=== PATIENT | female | born 1970 | race Caucasian/White ===

== ENCOUNTER 2020-01-06 09:06 | Inpatient (IN) | payer BC ==
[~2020-01-06] VITALS: Ht 160 cm; Wt 85.2 kg
[2020-01-06] MEDS ORDERED: MIRE1IUD IU (09:14)
[2020-01-06] MEDS ORDERED: KETOROLAC 30 MG/ML 1ML VIAL IV ONE (09:45)
[2020-01-06 10:03] LABS: HEMATOCRIT 40.6 % (36.0-47.0); HEMOGLOBIN 13.3 g/dl (12.0-15.5); MEAN CORPUSCULAR HEMOGLOBIN 30.4 pg (27.0-33.0); MEAN CORPUSCULAR HGB CONC 32.8 g/dl (32.0-36.5); MEAN CORPUSCULAR VOLUME 92.9 fl (80.0-96.0); PLATELET COUNT, AUTOMATED 268 10^3/uL (150-450); RED BLOOD COUNT 4.37 10^6/uL (4.00-5.40); WHITE BLOOD COUNT 14.3 10^3/uL (4.0-10.0)
[2020-01-06 10:42] LABS: ALBUMIN 3.4 GM/DL (3.2-5.2); ALT/SGPT 37 U/L (12-78); BILIRUBIN,DIRECT 0.2 MG/DL (0.0-0.2); BILIRUBIN,TOTAL 1.1 MG/DL (0.2-1.0); BLOOD UREA NITROGEN 20 MG/DL (7-18); CALCIUM LEVEL 8.6 MG/DL (8.5-10.1); CARBON DIOXIDE LEVEL 26 MEQ/L (21-32); CHLORIDE LEVEL 105 MEQ/L (98-107); CREATININE FOR GFR 0.77 MG/DL (0.55-1.30); GLOMERULAR FILTRATION RATE > 60.0 (>58); GLUCOSE, FASTING 97 MG/DL (70-100); LIPASE 70 U/L (73-393); POTASSIUM SERUM 4.1 MEQ/L (3.5-5.1); SODIUM LEVEL 140 MEQ/L (136-145); TOTAL PROTEIN 7.3 GM/DL (6.4-8.2)
[2020-01-06] MEDS ORDERED: ISOVUE-370 76% 100ML VIAL As Ordered ONE (11:24)
--- NOTE | 2020-01-06 11:40 | REP ---
PELVIC ULTRASOUND: Real-time sonographic evaluation of the pelvis performed utilizing transabdominal and endovaginal technique. The bladder measures 3.1 x 1.8 x 3.3 cm. The uterus measures 9.4 x 4.8 x 6.3 cm. Endometrial thickness is 6 mm. IUD is seen in the endometrial canal as well as a small amount of fluid. Ovaries are normal in size and echotexture, right ovary measuring 2.6 x 1.8 x 1.7 cm and left ovary 3.7 x 2.3 x 1.6 cm. There is no adnexal mass or torsion. Minimal free fluid is seen. There appears to be an intrauterine fibroid 2.1 x 1.9 x 1.5 cm. IMPRESSION: Anterior uterine fibroid. IUD seen in the endometrial canal with a small amount of fluid. No adnexal mass or torsion. Minimal free fluid. Electronically Signed by Golden Zamudio MD 01/06/2020 12:58 P
[2020-01-06] MEDS ORDERED: ONDANSETRON 4MG/2ML VIAL IV ONE (11:45)
[2020-01-06] MEDS ORDERED: MORPHINE 4 MG/ML 1ML VIAL/SYRINGE (J2270) IV ONE ×2 (11:45→15:15)
--- NOTE | 2020-01-06 13:07 | REP ---
CT ABDOMEN AND PELVIS WITH IV CONTRAST: TECHNIQUE: Axial contrast-enhanced images from the lung bases to the pubic symphysis using 100 mL Isovue-370 intravenous contrast material with multiplanar reformations. Visualized lung bases are clear. The liver, spleen, adrenals, pancreas and kidneys are unremarkable in appearance. There is no hydronephrosis. There is no abdominal aortic aneurysm. There is no adenopathy. There is no abscess. There is diffuse thickening of the sigmoid colon with multiple sigmoid diverticula and streaky pericolonic inflammation in this region compatible with diverticulitis. There are some tiny foci of extraluminal air surrounding the sigmoid colon. Pelvic structures are otherwise unremarkable. IUD is seen in the uterus. Urinary bladder is very mildly distended and not well evaluated. IMPRESSION: Sigmoid diverticulitis. The sigmoid is thickened with multiple diverticula and pericolonic inflammation. There are also tiny foci of extraluminal air in this region. Findings are consistent with diverticulitis. No abscess is seen. Findings were conveyed to Dewayneoneida Stroud by telephone at the time of the exam at 11:55 a.m. Electronically Signed by Golden Zamudio MD 01/07/2020 07:05 P
[2020-01-06] MEDS ORDERED: metroNIDAZOLE 750 MG in IV 1 EA IV ONE (13:15)
[2020-01-06] MEDS ORDERED: NS 1,000 ML IV ONE (13:15)
[2020-01-06] MEDS ORDERED: CIPROFLOXACIN 400 MG in IV 1 EA IV ONE (13:15)
[2020-01-06] MEDS ORDERED: metroNIDAZOLE 500 MG in IV 1 EA IV ONE (14:00)
[2020-01-06] MEDS ORDERED: NORCO, ANEXSIA 5/325MG TABLET (HYDROcodone/ACETAMINOPHEN) PO PRN ×2 (15:15)
[2020-01-06] MEDS ORDERED: KETOROLAC 30 MG/ML 1ML VIAL IV PRN (16:00)
[2020-01-06 16:43] VITALS: BP 127/76
[2020-01-06 16:50] VITALS: BP 127/76
[2020-01-06] MEDS: D5W/LR 1,000 ML IV SCH (17:13)
[2020-01-06] MEDS ORDERED: MORPHINE 2 MG/ML 1ML VIAL (J2270) IV PRN (19:00)
[2020-01-06] MEDS: PANTOPRAZOLE 40MG VIAL (C9113 PER 1) IV SCH (21:34)
[2020-01-06] MEDS: MORPHINE 2 MG/ML 1ML VIAL (J2270) IV PRN (21:35)
[2020-01-06 22:00] VITALS: BP 115/60
[2020-01-06] MEDS: metroNIDAZOLE 500 MG in IV 1 EA IV SCH (22:58)
[2020-01-07] MEDS: MORPHINE 2 MG/ML 1ML VIAL (J2270) IV PRN ×2 (02:03→06:32)
[2020-01-07] MEDS: CIPROFLOXACIN 400 MG in IV 1 EA IV SCH ×2 (02:03→13:29)
[2020-01-07] MEDS: D5W/LR 1,000 ML IV SCH ×4 (02:03→19:43)
[2020-01-07 05:59] LABS: HEMATOCRIT 33.1 % (36.0-47.0); MEAN CORPUSCULAR HEMOGLOBIN 30.5 pg (27.0-33.0); MEAN CORPUSCULAR HGB CONC 32.6 g/dl (32.0-36.5); MEAN CORPUSCULAR VOLUME 93.5 fl (80.0-96.0); PLATELET COUNT, AUTOMATED 207 10^3/uL (150-450); RED BLOOD COUNT 3.54 10^6/uL (4.00-5.40); WHITE BLOOD COUNT 11.5 10^3/uL (4.0-10.0)
[2020-01-07 06:00] VITALS: BP 111/59
[2020-01-07 06:02] LABS: HEMOGLOBIN 10.8 g/dl (12.0-15.5)
[2020-01-07 06:21] LABS: BLOOD UREA NITROGEN 14 MG/DL (7-18); CALCIUM LEVEL 7.5 MG/DL (8.5-10.1); CARBON DIOXIDE LEVEL 26 MEQ/L (21-32); CHLORIDE LEVEL 108 MEQ/L (98-107); CREATININE FOR GFR 0.72 MG/DL (0.55-1.30); GLOMERULAR FILTRATION RATE > 60.0 (>58); GLUCOSE, FASTING 142 MG/DL (70-100); POTASSIUM SERUM 3.6 MEQ/L (3.5-5.1); SODIUM LEVEL 140 MEQ/L (136-145)
[2020-01-07] MEDS: metroNIDAZOLE 500 MG in IV 1 EA IV SCH ×3 (06:31→23:34)
--- NOTE | 2020-01-07 09:25 | CR ---
DATE OF CONSULTATION: 01/06/2020 HISTORY OF PRESENT ILLNESS: The patient is a 49-year-old female who presents with abdominal pain and distension beginning 24 hours prior to prior to admission with some fevers and some vaginal bleeding. She has not complained of any significant diarrheal bowel movements but has had some crampy abdominal pain. She has had a rectocele and prolapsed uterus in the past. She has not any pneumaturia. No evidence of stool or fluid from her vagina. She presented with a low grade temperature elevated white count and underwent a CT scan which showed diverticulitis in the area adjacent to the colon up against the pelvic sidewall. There is some air that may be a contained perforation. She does complain of pain in the pelvis. Mostly she has some mild discomfort throughout her abdomen but foot does not complain of any severe discomfort in the epigastric area. Her ultrasound of her pelvis was performed because of the vaginal bleeding which revealed a fibroid as well as an IUD in place and the CT scan revealed inflammation of the sigmoid colon with colon thickening diverticulum, pericolonic inflammation as discussed earlier. The white count is 14.3. PAST MEDICAL HISTORY: History of rectocele repair, history of uterine prolapse history of diet-controlled diabetes mellitus. PHYSICAL EXAMINATION: 49-year-old female who looks stated age. HEENT is unremarkable. Neck: Supple without adenopathy. Lungs are clear to auscultation without crackles, wheezes or rhonchi. Heart is regular. Abdomen is soft, nondistended, mildly tender to palpation in the lower abdomen, although her response to pain to palpation is somewhat out of proportion to her facial changes and states that it is very tender but without wincing without moving without tightening upper abdominal wall, etc. IMPRESSION AND PLAN: The patient has evidence of diverticulitis. At this point it appears to be contained diverticulitis. She has had some nausea, vomiting and has been able to take adequate p.o. and this I do feel that she needs to be watched and given IV fluids, IV antibiotics and watched overnight. We will see how she does with the medical treatment of this. At this point I do not see a free perforation intraperitoneally and thus I do feel it is reasonable to treat her with antibiotics. I have instructed her that if she has progression of pain, fevers, chills, white count, she may need operative intervention and colectomy/colostomy. At this point, however, given her findings and clinical exam I do feel that it is reasonable to watch her overnight. She understands and also agrees with this plan. At some point she was wondering if she would be able to go home with antibiotics. I feel that would not be a good option for her at this time and I do feel that she needs to be watched closely considering this diverticulitis issue.
[2020-01-07 10:00] VITALS: BP 121/59
[2020-01-07 14:00] VITALS: BP 122/73
[2020-01-07] MEDS: KETOROLAC 30 MG/ML 1ML VIAL IV SCH ×2 (16:23→21:32)
[2020-01-07 18:00] VITALS: BP 114/68
[2020-01-07] MEDS: PANTOPRAZOLE 40MG VIAL (C9113 PER 1) IV SCH (21:32)
[2020-01-07 22:00] VITALS: BP 114/69
[2020-01-08 02:00] VITALS: BP 112/68
[2020-01-08] MEDS: CIPROFLOXACIN 400 MG in IV 1 EA IV SCH ×2 (02:07→13:56)
[2020-01-08] MEDS: KETOROLAC 30 MG/ML 1ML VIAL IV SCH ×4 (03:56→22:39)
[2020-01-08] MEDS: D5W/LR 1,000 ML IV SCH ×3 (04:20→23:45)
[2020-01-08 06:00] VITALS: BP 104/51
[2020-01-08] MEDS: metroNIDAZOLE 500 MG in IV 1 EA IV SCH ×2 (06:37→15:58)
[2020-01-08] MEDS: ONDANSETRON 4MG/2ML VIAL IV PRN ×2 (10:17→23:45)
[2020-01-08 10:19] LABS: HEMATOCRIT 31.4 % (36.0-47.0); HEMOGLOBIN 10.3 g/dl (12.0-15.5); MEAN CORPUSCULAR HEMOGLOBIN 30.6 pg (27.0-33.0); MEAN CORPUSCULAR HGB CONC 32.8 g/dl (32.0-36.5); MEAN CORPUSCULAR VOLUME 93.2 fl (80.0-96.0); PLATELET COUNT, AUTOMATED 199 10^3/uL (150-450); RED BLOOD COUNT 3.37 10^6/uL (4.00-5.40); WHITE BLOOD COUNT 9.6 10^3/uL (4.0-10.0)
[2020-01-08] MEDS: MORPHINE 2 MG/ML 1ML VIAL (J2270) IV PRN (10:27)
--- NOTE | 2020-01-08 10:38 | IPN ---
DATE: 01/08/2020 Patient overall states that when she had a little bit to drink this morning she was having more crampy abdominal pain and is having bowel movements with this, but overall she appears to be better. Her temperature has come down nicely and her repeat white count is 9.6 this morning down to normal. She has not had any nausea and no vomiting. She has had several diarrheal bowel movements. Her abdomen is softly distended, mildly uncomfortable to palpation throughout her abdomen. Some mild tenderness in the suprapubic area to deep palpation, but no significant guarding, rebound or peritoneal signs. IMPRESSION AND PLAN: Patient has continued improvement clinically, continued improvement from a white count and unfortunately, subjectively, she feels more bloated with crampy pain and thus, we will keep her on some clear liquids today. We will see how she does with this and possibly progress her diet over the weekend, but otherwise, we will continue our current course given the continued improvement.
--- NOTE | 2020-01-08 11:58 | IPN ---
DATE: 01/08/2020 The patient did have a little bit of a low-grade temperature overnight 99.2. Although she is feeling better today, she states her pain is better today. She has not had any nausea and she states that she has had a bowel movement this morning and it is somewhat liquid. She is still having good urine output. She has had not as much nausea and she has been passing gas. Still states her abdomen is sore throughout, only minimal and most of the discomfort is deep and in the suprapubic area. Vitals are stable. She has been afebrile this morning and abdomen is softer than it was yesterday. She had some mild discomfort and to palpation throughout her abdomen. She has some mild tenderness to the suprapubic left lower quadrant area. She states this pain is approximately a 6, but on my assessment at it is somewhere around 2 or 3/ IMPRESSION AND PLAN: The patient has resolving/improving diverticulitis. At this time, my recommendation is that we continue on IV fluids and we will go slowly with her given her discomfort and start clear liquids tomorrow morning, will have her increase her activity and see how she is doing overnight. From the standpoint of discharge, discharge will be dependent on being able to tolerate oral intake, being afebrile and normalizing white count.
[2020-01-08 12:32] VITALS: BP 121/73
[2020-01-08] MEDS: GASTROGRAFIN SOLUTION 30ML PO SCH ×2 (13:06→13:07)
[2020-01-08] MEDS: ACETAMINOPHEN TAB 650MG DOSE (2X325MG) PO PRN (13:56)
[2020-01-08 14:00] VITALS: BP 105/66
[2020-01-08] MEDS ORDERED: ISOVUE-370 76% 100ML VIAL As Ordered ONE (14:14)
[2020-01-08] MEDS: PIPERACILLIN/TAZOBACTAM SOD 3.375 GM in D5W MINI-BAG PLUS 50 ML IV SCH ×2 (17:50→23:45)
[2020-01-08 22:00] VITALS: BP 106/53
[2020-01-08] MEDS: PANTOPRAZOLE 40MG VIAL (C9113 PER 1) IV SCH (22:39)
[2020-01-09 02:00] VITALS: BP 106/52
[2020-01-09] MEDS: KETOROLAC 30 MG/ML 1ML VIAL IV SCH ×4 (04:57→21:23)
[2020-01-09 06:00] VITALS: BP 123/65
[2020-01-09] MEDS: PIPERACILLIN/TAZOBACTAM SOD 3.375 GM in D5W MINI-BAG PLUS 50 ML IV SCH ×4 (06:08→23:59)
--- NOTE | 2020-01-09 06:17 | IPNPDOC ---
Text Note Date of Service The patient was seen on 01/09/20. NOTE Patient was admitted last saturday for acute diverticulitis with contained pe rforation, no abscess noted on imaging.She presented with 24 hours of abdominal pain centered at the left lower quadrant area and fever early on her course. She transiently improved with IV antibiotics, bowel rest but again had resumption/worsening of her abdominal pain yesterday and again was febrile up to 102. Repeat CT did not show any new perforation, or abscess formation but did show worsening inflammation/thickening of the sigmoid colon with more free fluid at the left gutter. VS,Fishbone, I+O VS, Fishbone, I+O Laboratory Tests 01/08/20 09:52 Vital Signs Date Time Temp Pulse Resp B/P (MAP) Pulse Ox O2 Delivery O2 Flow Rate FiO2 01/09/20 02:00 98.6 78 18 106/52 (70) 98 Room Air I&O- Last 24 Hours up to 6 AM 01/09/20 06:00 Intake Total 1870 ml Output Total 1375 ml Balance 495 ml MAAME JIMENEZ MD Jan 09, 2020 06:17
[2020-01-09 07:17] LABS: BASO % 0.1 % (0.0-1.0); EOS # 0.1 10^3/uL (0.0-0.5); EOS % 1.3 % (0.0-3.0); HEMATOCRIT 32.1 % (36.0-47.0); HEMOGLOBIN 10.4 g/dl (12.0-15.5); LYMPH # 1.5 10^3/uL (1.5-5.0); MEAN CORPUSCULAR HEMOGLOBIN 29.9 pg (27.0-33.0); MEAN CORPUSCULAR HGB CONC 32.4 g/dl (32.0-36.5); MEAN CORPUSCULAR VOLUME 92.2 fl (80.0-96.0); MONO # 0.5 10^3/uL (0.0-0.8); MONO % 5.2 % (0.0-5.0); NEUTROPHILS # 6.6 10^3/uL (1.5-8.5); NEUTROPHILS % 75.9 % (36.0-66.0); PLATELET COUNT, AUTOMATED 232 10^3/uL (150-450); RED BLOOD COUNT 3.48 10^6/uL (4.00-5.40); WHITE BLOOD COUNT 8.7 10^3/uL (4.0-10.0)
[2020-01-09 07:44] LABS: BLOOD UREA NITROGEN 7 MG/DL (7-18); CALCIUM LEVEL 7.8 MG/DL (8.5-10.1); CARBON DIOXIDE LEVEL 25 MEQ/L (21-32); CHLORIDE LEVEL 109 MEQ/L (98-107); CREATININE FOR GFR 0.58 MG/DL (0.55-1.30); GLOMERULAR FILTRATION RATE > 60.0 (>58); GLUCOSE, FASTING 113 MG/DL (70-100); POTASSIUM SERUM 3.3 MEQ/L (3.5-5.1); SODIUM LEVEL 142 MEQ/L (136-145)
--- NOTE | 2020-01-09 08:45 | IPNPDOC ---
Text Note Date of Service The patient was seen on 01/09/20. NOTE Patient had a febrile episode of 102.7 yesterday with increasing pain and naus ea, CT scan shows persistent, slightly worsened inflammation of the sigmoid colon without a new perforation or abscess formation. After I saw her, she defervesced and felt better overnight, has minimal abdominal discomfort this morning. On exam, She looks more comfortable this morning compared to yesterday skin, warm and dry lungs clear regular heart rate and rhythm abdomen, round soft, nondistended, minimal left over tenderness over LLQ area without guarding Labs reviewed no leukocytosis CRP = 15 Impression Acute Diverticulitis She has some worsening of her inflammatory response to the colon which looks quite inflamed throughout the sigmoid colon without new perforation or abscess formation on CT. I spoke to her about performing sigmoid colectomy with colostomy as a way to address this. Her abx were adjusted and she was made NPO. She has improved since we discussed surgery and this morning feels a lot better. She has defervesced since the afternoon. After thorough discussion with her, we will defer surgery for now and if she continues to get better, most likely maybe able to be discharged home on abx and plan for interval colonoscopy and possible elective sigmoid colectomy. advance to clears VS,Theoe, I+O VS, Theoe, I+O Laboratory Tests 01/08/20 09:52 01/09/20 06:40 Vital Signs Date Time Temp Pulse Resp B/P (MAP) Pulse Ox O2 Delivery O2 Flow Rate FiO2 01/09/20 06:00 98.0 72 18 123/65 (84) 97 Room Air I&O- Last 24 Hours up to 6 AM 01/09/20 06:00 Intake Total 3315 ml Output Total 1375 ml Balance 1940 ml MAAME JIMENEZ MD Jan 09, 2020 08:45
[2020-01-09 10:00] VITALS: BP 119/58
--- NOTE | 2020-01-09 10:18 | REP ---
REASON: Followup sigmoid colon diverticulitis. COMPARISON: 01/06/2020 CONTRAST: 100 mL of Isovue 370. The symmetric opacities are seen in the lung bases which have developed since the last exam but likely represent subsegmental atelectatic changes there no pleural or pericardial effusions. The liver and spleen are unchanged. There is density in the gallbladder likely secondary to a vicarious excretion of previously injected intravenous contrast. There is a small amount of free fluid in the abdomen, which have developed since the last exam. The pancreas, adrenal glands and kidneys are again seen to be within normal limits. The abdominal aorta and paraortic regions are again seen to be within normal limits. There is no free intraperitoneal air. There are multiple fluid gas-filled dilated small bowel loops in the abdomen which have increased from the prior exam. Once again, there is marked thickening of the wasserman of the sigmoid colon with pericolonic fatty infiltration. There is fluid trapped in the leaves of the small bowel mesenteries representing a change. There is free fluid in the pelvis which represents a change. In addition, there are a few tiny dots of air density in the left hemipelvic mesentery which are unchanged. These could be arising from large sigmoid colon diverticula. Once again, there is a T-shaped radiodensity in the uterus consistent with an IUD. There is no change in the osseous structures. IMPRESSION: 1. Likely bibasilar subsegmental atelectatic change is seen in the lung cao. 2. There is a small amount of ascites which has developed since the last exam as described above. 3. Persistent abnormal sigmoid colon and distal descending colon wall thickening and fatty infiltration consistent with infections/inflammatory changes possibly increased from the prior exam. 4. There is evidence of a small bowel ileus which appears to have increased slightly compared to the prior exam. 5. Other findings as described above. Continued surveillance is recommended. These findings were discussed with Dr. Miles Douglas at the time of this dictation. Electronically Signed by Stanley Suarez DO 01/11/2020 10:54 A
[2020-01-09] MEDS: D5W/LR 1,000 ML IV SCH ×2 (10:48→21:23)
[2020-01-09] MEDS: ACETAMINOPHEN TAB 650MG DOSE (2X325MG) PO PRN (10:55)
[2020-01-09 13:38] VITALS: BP 119/62
[2020-01-09 18:00] VITALS: BP 114/57
[2020-01-09] MEDS: PANTOPRAZOLE 40MG VIAL (C9113 PER 1) IV SCH (21:23)
[2020-01-09 22:00] VITALS: BP 114/64
[2020-01-10 02:00] VITALS: BP 113/53
[2020-01-10] MEDS: PIPERACILLIN/TAZOBACTAM SOD 3.375 GM in D5W MINI-BAG PLUS 50 ML IV SCH ×4 (05:17→23:02)
[2020-01-10] MEDS: KETOROLAC 30 MG/ML 1ML VIAL IV SCH ×4 (05:17→21:47)
[2020-01-10 06:00] VITALS: BP 117/66
[2020-01-10 10:00] VITALS: BP 118/65
[2020-01-10] MEDS: D5W/LR 1,000 ML IV SCH ×2 (12:12→20:08)
[2020-01-10 14:00] VITALS: BP 125/67
[2020-01-10 18:00] VITALS: BP 112/57
--- NOTE | 2020-01-10 19:46 | IPNPDOC ---
Text Note Date of Service The patient was seen on 01/10/20. NOTE Patient reports feeling better, afebrile overnight, still with some loose stools, tolerating clears VS stable last febrile episode 01/08 at 10 am at 100.1 On exam Patient looks comfortable Lung sounds are clear bilaterally regular heart rate and rhythm abdomen is nondistended, minimally tender at left lower quadrant area labs reviewed CRP slightly lower at 13.20 Impression and plans: Acute Diverticulitis Clinically improving. I will gradually advance her diet and so long as the inflammatory response is improving/controlled could probably wait it out with antibiotics, interval colonoscopy later on to verify etiology of sigmoid colon inflammation and discussion for interval sigmoid colectomy. VS,Fishbone, I+O VS, Fishbone, I+O Vital Signs Date Time Temp Pulse Resp B/P (MAP) Pulse Ox O2 Delivery O2 Flow Rate FiO2 01/10/20 18:00 100.0 84 17 112/57 (75) 98 Room Air I&O- Last 24 Hours up to 6 AM 01/10/20 06:00 Intake Total 3135 ml Output Total 225 ml Balance 2910 ml MAAME JIMENEZ MD Jan 10, 2020 19:46
[2020-01-10] MEDS: PANTOPRAZOLE 40MG VIAL (C9113 PER 1) IV SCH (20:04)
[2020-01-10 22:00] VITALS: BP 119/64
[2020-01-11 02:00] VITALS: BP 117/65
[2020-01-11] MEDS: KETOROLAC 30 MG/ML 1ML VIAL IV SCH ×2 (05:31→11:07)
[2020-01-11] MEDS: PIPERACILLIN/TAZOBACTAM SOD 3.375 GM in D5W MINI-BAG PLUS 50 ML IV SCH ×2 (05:32→11:07)
[2020-01-11] MEDS: D5W/LR 1,000 ML IV SCH (05:32)
[2020-01-11 06:00] VITALS: BP 117/66
[2020-01-11 10:00] VITALS: BP 146/74
[2020-01-11] MEDS ORDERED: AUGM875T28 PO (11:35)
== END 2020-01-11 13:25 | disposition home or self-care (01) | DRG 244 ==
LOC: M ED 09:06 → M ED INP 15:09 → ENRESERV 15:28 → M MSPAV 16:53
PROVIDERS: ADMIT Surgery; ATTEND Surgery
DX: K57.32 Diverticulitis of large intestine without perforation or abscess without bleeding (principal)

== ENCOUNTER → 2020-01-27 | Outpatient (CLI) | payer BC ==
[~2020-01-27] MED LIST: AUGM875T28 PO; MIRE1IUD IU
[2020-01-27 11:43] LABS: APPEARANCE, URINE CLEAR (CLEAR); BACTERIA, URINE AUTO NEGATIVE (NEGATIVE); BILIRUBIN, URINE AUTO NEGATIVE (NEGATIVE); BLOOD, URINE BLOOD 2+ (NEGATIVE); COLOR, URINE YELLOW (YELLOW); GLUCOSE, URINE (UA) AUTO NEGATIVE (NEGATIVE); KETONE, URINE AUTO NEGATIVE (NEGATIVE); LEUKOCYTE ESTERASE, URINE AUTO NEGATIVE (NEGATIVE); MUCUS, URINE SMALL (NEGATIVE); NITRITE, URINE AUTO NEGATIVE (NEGATIVE); PROTEIN, URINE AUTO NEGATIVE (NEGATIVE); RBC, URINE AUTO 25 /HPF (0-3); SPECIFIC GRAVITY URINE AUTO 1.028 (1.002-1.035); SQUAMOUS EPITHELIAL CELL UR AU 0 /HPF (0-6); UROBILINOGEN, URINE AUTO 0.2 mg/dL (0.0-2.0); WBC, URINE AUTO 1 /HPF (0-3)
[2020-01-27 11:56] LABS: HEMATOCRIT 39.3 % (36.0-47.0); HEMOGLOBIN 12.5 g/dl (12.0-15.5); MEAN CORPUSCULAR HEMOGLOBIN 29.8 pg (27.0-33.0); MEAN CORPUSCULAR HGB CONC 31.8 g/dl (32.0-36.5); MEAN CORPUSCULAR VOLUME 93.6 fl (80.0-96.0); PLATELET COUNT, AUTOMATED 318 10^3/uL (150-450); WHITE BLOOD COUNT 9.9 10^3/uL (4.0-10.0)
== END ==
LOC: M LAB 11:10
PROVIDERS: ATTEND Surgery
DX: K57.30 Diverticulosis of large intestine without perforation or abscess without bleeding (principal)

== ENCOUNTER → 2020-02-09 | Outpatient (CLI) | payer BC ==
[~2020-02-09] MED LIST changes: +GASTROGRAFIN SOLUTION 30ML (Q9963) As Ordered ONE; +ISOVUE-370 76% 100ML VIAL As Ordered ONE
--- NOTE | 2020-02-10 07:27 | REP ---
REASON: Previous history of diverticulitis. COMPARISON: 01/08/2020 CONTRAST: 100 mL Isovue-370. The lung bases are clear and unchanged. The liver, gallbladder, spleen, pancreas, adrenal glands, and kidneys are within normal limits. There is no free fluid or free air in the abdomen or pelvis. The intra-abdominal bowel loops and their mesenteries are within normal limits. There is descending colon diverticulosis. Once again, there is rather marked sigmoid colon diverticulosis with sigmoid colon wall thickening, but improved from the prior exam. Sigmoid colon fatty infiltration seen previously has resolved. There is no intra-abdominal or intrapelvic mass or adenopathy. Bone window technique throughout the examination shows the osseous structures to be stable and intact. Note is again made of an IUD in place. IMPRESSION: No acute disease. Chronic changes, as described above. Electronically Signed by Stanley Suarez DO 02/10/2020 09:31 A
== END ==
LOC: M RAD 11:46
PROVIDERS: ATTEND Surgery
DX: K57.30 Diverticulosis of large intestine without perforation or abscess without bleeding (principal)
CPT/HCPCS: 74177; Q9963; Q9967